=== PATIENT | male | born 1980 | race Caucasian/White ===

== ENCOUNTER 2019-01-18 18:54 | Inpatient (IN) | payer OTHER ==
[~2019-01-18] VITALS: Ht 190.5 cm; Wt 123.8 kg
[2019-01-18 18:55] VITALS: BP 165/91
[2019-01-18] MEDS ORDERED: CLONAZEPAM 1 MG1 M1 PO (19:02)
[2019-01-18] MEDS ORDERED: DOXEPIN 25 MG C25 M1 PO (19:03)
[2019-01-18] MEDS ORDERED: CYMBALTA60 MG PO (19:04)
[2019-01-18] MEDS ORDERED: PAXIL40 MG PO (19:04)
[2019-01-18] MEDS ORDERED: AVAPRO300 MG PO (19:05)
[2019-01-18] MEDS ORDERED: IBUPROFEN 800800 M1 PO (19:05)
[2019-01-18] MEDS ORDERED: VITAMIN D3400 UNIT PO (19:05)
[2019-01-18] MEDS ORDERED: CENTRUM SILVER1 EAC2 PO (19:06)
[2019-01-18] MEDS ORDERED: B COMPLEX1 EACH PO (19:06)
[2019-01-18 19:21] LABS: ABSOLUTE NEUTROPHILS 8.8 thou/uL (1.4-8.2); BASOPHILS 0.3 % (0.0-2.0); EOSINOPHILS 0.1 % (0.0-3.0); HEMATOCRIT 36.4 % (42.0-52.0); HEMOGLOBIN 12.7 gm/dL (14.0-18.0); LYMPHOCYTES 8.1 % (24.0-44.0); MCH 31.3 pg (26.0-34.0); MCV 89.4 fL (80.0-100.0); MONOCYTES 5.3 % (1.0-8.0); PLATELET COUNT 309 thou/uL (150-400); POLYS 86.2 % (36.0-66.0); RBC 4.07 mil/uL (4.50-6.00); RDW 14.2 % (10.5-14.5); WBC 10.2 thou/uL (4.0-11.0)
[2019-01-18 19:46] LABS: ALBUMIN 4.2 g/dL (3.4-5.0); CALCIUM 8.4 mg/dL (8.5-10.1); CREATININE 1.2 mg/dL (0.7-1.3); DIRECT BILIRUBIN 0.2 mg/dL (<0.1-0.3); POTASSIUM 3.7 mmol/L (3.5-5.1); TOTAL BILIRUBIN 0.7 mg/dL (<0.1-1.0); TOTAL PROTEIN 7.8 g/dL (6.4-8.2)
--- NOTE | 2019-01-18 19:48 | NUR ---
CRITICAL LAB VALUE TQ=340 REPORTED BY CHRISTY. PHYSICIAN INFORMED
--- NOTE | 2019-01-18 20:06 | NUR ---
RECEIVED ANOTHER CRITICAL LAB LACTIC ACID=16.9, INFORMED PHYSICIAN
[2019-01-18 21:25] LABS: URINE BILIRUBIN NEGATIVE (Negative); URINE BLOOD 1+ (Negative); URINE CLARITY CLEAR; URINE COLOR YELLOW; URINE GLUCOSE-RANDOM* NEGATIVE (Negative); URINE KETONES 1+ (Negative); URINE LEUKOCYTES-REFLEX NEGATIVE (Negative); URINE NITRITE-REFLEX NEGATIVE (Negative); URINE PROTEIN (DIPSTICK) TRACE (Negative); URINE UROBILINOGEN 0.2 E.U./dl (0.2-1.0)
[2019-01-18 21:31] LABS: AMP/METHAMP Negative (Negative); BARBITURATES Negative (Negative); BENZODIAZEPINES Negative (Negative); COCAINE Negative (Negative); METHADONE Negative (Negative); OPIATES Negative (Negative); PCP Negative (Negative)
[2019-01-18 21:41] LABS: BACTERIA-REFLEX 1-9 Few /HPF (None Seen); CASTS None Seen /LPF (None Seen); CRYSTALS None Seen /LPF (None Seen); SQUAMOUS None Seen /LPF (0-3); URINE WBC-REFLEX None Seen /HPF (0-5)
[2019-01-18 21:42] LABS: URINE RBC 0-2 Rare /HPF (0-2)
[2019-01-18 23:07] VITALS: BP 144/79
[2019-01-18 23:56] VITALS: BP 154/85
[2019-01-19 00:15] LABS: MAGNESIUM 2.4 mg/dL (1.8-2.4); PHOSPHORUS 3.5 mg/dL (2.5-4.9)
[2019-01-19 00:50] VITALS: BP 149/94
[2019-01-19 01:10] LABS: FOLIC ACID 38.2 ng/mL (8.6-58.9)
[2019-01-19] MEDS ORDERED: [UNRECOGNIZED DRUG - OTHER] PO (01:32)
--- NOTE | 2019-01-19 03:43 | NUR ---
PATIENT IS IMPULSIVE. ALERT AND OREIENTED. PATIENT IS CIWA SCORING GREATER THAN 10. PATIENT IS DIAPHORETIC, SEVER TREMORS. PATIENT HAS URINARY FREQUENTCY INCONTIENTANCE. PATIENT IS A HUGE FALL RISK. PATIENT IS ROOM AIR. USES CPAP AT HOME BUT WILL NOT REQUIRE CPAP IN HOSPITAL PER PATIENT. PATIENT DC TWO IVS. PATIENT IS IN BED. [facility]
[2019-01-19 05:05] LABS: HEMATOCRIT 34.4 % (42.0-52.0); HEMOGLOBIN 12.5 gm/dL (14.0-18.0); MCH 31.8 pg (26.0-34.0); MCHC 36.2 g/dL (28.0-37.0); MCV 87.9 fL (80.0-100.0); RBC 3.92 mil/uL (4.50-6.00); RDW 14.5 % (10.5-14.5); WBC 7.8 thou/uL (4.0-11.0)
[2019-01-19 05:10] LABS: CREATININE 0.8 mg/dL (0.7-1.3); POTASSIUM 3.5 mmol/L (3.5-5.1)
[2019-01-19 05:30] VITALS: BP 126/75
[2019-01-19 06:09] LABS: URINE CREATININE-RANDOM* <13 mg/dL; URINE SODIUM-RANDOM* 13 mmol/L
[2019-01-19 07:43] VITALS: BP 121/82
--- NOTE | 2019-01-19 08:21 | EKG ---
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 : 1980 Requested By: Lorie Ames Order Number: [id number] MD: Clifton Edmonds Measurements Intervals [place] Rate: 108 P: 39 KS: 200 QRS: 79 QRSD: 103 T: 17 QT: 331 QTc: 444 Interpretive Statements Sinus tachycardia Borderline prolonged KS interval No previous ECG available for comparison Electronically Signed On 01-19-2019 8:20:56 CDT by Clifton Edmonds [email or web address] ��������������������������������������������� <ELECTRONICALLY SIGNED> ���������������������������������������� By: Clifton Edmonds MD ��������������������������������������������� 01/19/19 08 1905 04 Clifton Edmonds MD /RADHA
[2019-01-19] MEDS ORDERED: COZAAR100 MG PO (08:58)
--- NOTE | 2019-01-19 09:16 | 2DMMODE ---
[facility] [address] [place] [address] 2 D/M-MODE ECHOCARDIOGRAM Name: FABIANNADYA COLLINS Room #: 353-P ADM IN ..#: [id number] ������������� Admission: 01/18/19 ������������� Attend Phys: Dany Ervin MD Discharge: ��� ������������� ��� Date of : 82 Date of Service: 01/19/19 0915 �� Report #: [id number] �������� ��������������������������������������������[id number] THIS REPORT FOR: //name// APPROVED REPORT Study performed: 01/19/2019 08:06:16 EXAM: Comprehensive 2D, Doppler, and color-flow Echocardiogram Patient Location: Bedside Room #: 353 Status: routine BSA: 2.50 HR: 105 bpm BP: 126/75 mmHg Rhythm: NSR/tachycardia Other Information Study Quality: Adequate/tech Indications Syncope Seizures, alcohol withdrawls. 2D Dimensions RVDd: 34.81 mm IVSd: 10.48 (7-11mm) LVOT Diam: 25.26 (18-24mm) LVDd: 50.04 mm PWd: 9.87 (7-11mm) Ascending Ao: 37.03 (22-36mm) LVDs: 31.35 (25-40mm) Aortic Root: 48.42 mm Volumes Left Atrial Volume (Systole) Single Plane 4CH: 46.96 mL Single Plane 2CH: 46.70 mL LA ESV Index: 20.00 mL/m2 Aortic Valve AoV Peak Vikram.: 1.69 m/s AO Peak Gr.: 11.41 mmHg LVOT Max P.37 mmHg LVOT Max V: 1.53 m/s JACKELYN Vmax: 4.54 cm2 Mitral Valve E/A Ratio: 0.7 MV Decel. Time: 170.83 ms [facility] [address] [place] [address] 2 D/M-MODE ECHOCARDIOGRAM Name: NADYA PERALTA Room #: 353-P [facility] IN [facility].#: [id number] ������������� Admission: 01/18/19 ������������� Attend Phys: Dany Ervin MD Discharge: ��� ������������� ��� Date of : 82 Date of Service: 01/19/19 0915 �� Report #: [id number] �������� ��������������������������������������������[id number] E Max Vikram.: 0.72 m/s MV A Vikram.: 0.99 m/s MV PHT: 49.54 ms IVRT: 76.12 ms Pulmonary Valve PV Peak Vikram.: 0.99 m/s PV Peak Gr.: 3.95 mmHg Tricuspid Valve TR Peak Vikram.: 2.43 m/s RAP Estimate: 5.00 mmHg TR Peak Gr.: 23.56 mmHg PA Pressure: 29.00 mmHg Left Ventricle The left ventricle is normal size. There is normal LV segmental wall motion. There is normal left ventricular wall thickness. Left ventricular systolic function is normal. LVEF is 55-60%. Mild diastolic dysfunction is present (impaired relaxation pattern). Right Ventricle The right ventricle is normal size. The right ventricular systolic function is normal. Atria The left atrium size is normal. The right atrium size is normal. Aortic Valve The aortic valve is normal in structure, trileaflet. No aortic regurgitation is present. There is no aortic valvular stenosis. Mitral Valve The mitral valve is normal in structure. Trace to mild mitral regurgitation. Tricuspid Valve The tricuspid valve is normal in structure. Trace tricuspid regurgitation. Estimated PAP is 30mmHg. Pulmonic Valve The pulmonary valve is normal in structure. Trace pulmonic regurgitation. Great Vessels [facility] [address] [place] [address] 2 D/M-MODE ECHOCARDIOGRAM Name: NADYA PERALTA Room #: 353-P ADM IN M.R.#: [id number] ������������� Admission: 01/18/19 ������������� Attend Phys: Dany Ervin MD Discharge: ��� ������������� ��� Date of : 82 Date of Service: 01/19/19 0915 �� Report #: [id number] �������� ��������������������������������������������[id number] Aortic root is moderately dilated at 4.8cm at the level of the sinuses. The ascending aorta is normal in size. IVC is normal in size and collapses >50% with inspiration. Pericardium There is no pericardial effusion. <Conclusion> Left ventricular systolic function is normal. There is normal LV segmental wall motion. LVEF is 55-60%. Mild diastolic dysfunction The aortic valve is normal in structure, trileaflet. No aortic regurgitation or stenosis The mitral valve is normal in structure. Trace to mild mitral regurgitation. Trace tricuspid regurgitation. Estimated pulmonary artery pressure 30mmHg. Aortic root is moderately dilated at 4.8cm at the level of the sinuses. Ascending aorta is normal in size. Pulmonary artery pressure of 30mmHg There is no pericardial effusion. ��������������������������������������������� <ELECTRONICALLY SIGNED> ���������������������������������������� By: Otis Beard MD, FACC ��������������������������������������������� 01/19/19914 4 4 Otis Beard MD, FACC /INF
[2019-01-19 09:38] LABS: CALCIUM 8.5 mg/dL (8.5-10.1); CREATININE 0.9 mg/dL (0.7-1.3)
[2019-01-19 09:39] LABS: POTASSIUM 2.9 mmol/L (3.5-5.1)
[2019-01-19 12:21] VITALS: BP 125/85
[2019-01-19 16:35] VITALS: BP 144/93
[2019-01-19 19:36] VITALS: BP 129/60
[2019-01-20] VITALS: BP 121/79
[2019-01-20 04:30] VITALS: BP 128/80
--- NOTE | 2019-01-20 04:30 | NUR ---
Patient making slow progress towards outcome goals. Vital signs and rhythm stable.NPO. IVFluids infusing. High fall risk, uses calling light appropriately for needs, fall precautions in place. Spouse at bedside. CIWA, Lorazepam per protocol with good relief.
[2019-01-20 04:47] LABS: CREATININE 0.9 mg/dL (0.7-1.3); MAGNESIUM 2.3 mg/dL (1.8-2.4); PHOSPHORUS 2.8 mg/dL (2.5-4.9); POTASSIUM 3.4 mmol/L (3.5-5.1)
[2019-01-20 07:42] VITALS: BP 129/80
--- NOTE | 2019-01-20 10:45 | HC ---
[facility] [place] [address] CONSULTATION Name: NADYA PERALTA Room #: 353-P ADM IN M.R.#: [id number] Admission: 01/18/19 ������������������ Attend Phys: Dany Ervin MD Discharge: ������������������ Date of : [birth year] Report #: [id number] THIS REPORT FOR: //name// CC: Darryl Ervin HISTORY OF PRESENT ILLNESS: The patient is a 38-year-old male who has been struggling with a left elbow infection. Apparently, he was begun on Keflex and for the past several days has been sick to his stomach. He has had nausea, vomiting and diarrhea. He states he has been trying to drink water, but it had been going straight through him. On the day of admission, the patient had gone into the bathroom, the patient's heard a funny sound coming from the bathroom. When she went to the bathroom, she found him unconscious. The patient was pale and diaphoretic; however, there were no jerking movements of the extremities. His states there was blood coming from his mouth, apparently, he had bit the end of his tongue and from his left elbow. The patient was actually supposed to have surgery today. Reviewing the notes from the Emergency Room, it states that the patient was on the ground, shaking, disoriented and sweating. However, the patient had no specific jerking movements, but had a tremor. After this event, he was confused and it took him, she states at least 5 minutes to come around. The patient does drink alcohol. He drinks 4-5 drinks a day 4-5 days a week. PAST MEDICAL HISTORY: Alcohol abuse, depression, anxiety, nonhealing wound of the left elbow. PAST SURGICAL HISTORY: Right elbow surgery. MEDICATIONS: Clonazepam 1 mg b.i.d., doxepin 25 mg b.i.d., paroxetine 40 mg daily, Cymbalta 120 mg daily, Avapro 300 mg daily, ibuprofen 800 mg t.i.d., vitamin D 400 international units daily, B complex daily, multivitamin daily. ALLERGIES: CODEINE, GABAPENTIN, HYDROMORPHONE, LYRICA. VITAL SIGNS: Temperature is 37.1, pulse rate 114, respiratory rate 24, blood pressure 121/82, bedside pulse oximetry 100% on room air. LABORATORY DATA: White blood cell count 7.8, hemoglobin 12.5, hematocrit 34.4, MCV 87.9, platelet count 260,000, 86.2% segmented neutrophils. Urinalysis, trace protein, 1+ ketones, 1+ blood. Chemistry on admission, the patient's sodium was 115, today it is 120, potassium 2.9, chloride 95, carbon dioxide 22, BUN 5, creatinine 0.9, GFR 95, glucose 104, bilirubin 0.7, GGT 139, AST 89, ALT 60, alkaline phosphatase 126, albumin 4.2, lipase 123, B12 764, folate 38.2. TSH 1.153. Toxicology negative with the exception of serum alcohol, which was 67. [address] [address] CONSULTATION Name: NADYA PERALTA Room #: 353-P [facility] IN ..#: [id number] Admission: 01/18/19 ������������������ Attend Phys: Dany Ervin MD Discharge: ������������������ Date of : 82 Report #: [id number] IMAGING: CT scan of the head is negative. NEUROLOGIC: Cranial nerves 2-12 are grossly intact. Motor exam demonstrates symmetrical strength in all 4 extremities with tone and bulk normal. Reflexes are symmetrical throughout. Plantar responses are flexor. Coordination reveals intact [id number]. Gait was not tested. IMPRESSION AND PLAN: This patient has had either a syncopal event or a seizure. He is certainly at risk for either. The EEG should be helpful. If this is unremarkable, then I would not recommend any antiepileptic medication because on presentation, the patient had significant hyponatremia. I also spoke to the patient about the mild elevation in his liver functions and explained to him that if he cannot stop drinking on his own, he should try to find someone who can help him. The patient should also be watched for alcohol withdrawal. At this moment, he does have a tremor and does have p.r.n. lorazepam ordered. I thank you for your kind referral of this patient. We will continue to follow him with you. ��������������������������������������������� <ELECTRONICALLY SIGNED> ���������������������������������������� By: Kia Lipscomb DO ��������������������������������������������� 01/20/19 1045 1040 0226 Kia Lipscomb DO /nt
--- NOTE | 2019-01-20 10:45 | EEG ---
[facility] [place] [address] ELECTROENCEPHALOGRAM Name: NADYA PERALTA Room #: 353-P [facility] IN M.R.#: [id number] ������������������ Admission: 01/18/19 ������������������ Attend Phys: Dany Ervin MD Discharge: ������������������ Date of : 82 Report #: [id number] ����������������������������������������������������������������� [id number] THIS REPORT FOR: //name// CC: Darryl Ervin MD HISTORY: The patient is a 38-year-old male with an episode of altered consciousness and EEG is requested for further evaluation. DESCRIPTION: The record consists of low amplitude 20-25 cycles per second activity, most likely secondary to benzodiazepine effect. The posterior dominant rhythm is not well identified, but at times there appears to be a 10-cycle per second posterior dominant rhythm, which attenuates with eye opening. EMG/muscle artifact is noted during the recording. Stage 1 sleep is characterized by attenuation of the background record. No clear focal abnormalities or epileptiform discharges are noted. IMPRESSION: This is an unremarkable adult awake to stage 1 sleep record. No clear focal abnormalities or epileptiform discharges are noted. Beta activity seen throughout the recording. This is most likely secondary to medication effect from benzodiazepines or barbiturates. ���������������������������������������� <ELECTRONICALLY SIGNED> ���������������������������������������� By: Kia Lipscomb DO ��������������������������������������������� 01/20/19 1045 1417 1755 Kia Lipscomb DO /nt
[2019-01-20 16:16] VITALS: BP 131/87
--- NOTE | 2019-01-20 18:15 | NUR ---
MARIA DE JESUS KO SIGINIFICANTLY IMPROVED TODAY. HE IS ALERT ORIENTED X4. GAIT IS NOW STEADY, HE IS NOT IMPULSIVE ANYMORE. HE DID WALK WITH STAFF ABOUT FACILITY WITH A NORMAL RATE STEADY GAIT. HE WILL BE UPGRADED TO STAND BY ASSIST. WILL CONT WITH PLAN OF CARE.
[2019-01-20 19:35] VITALS: BP 130/85
[2019-01-21] VITALS (14 sets, daily range): BP systolic 123–143; BP diastolic 65–103
--- NOTE | 2019-01-21 03:59 | NUR ---
RESTING QUIETLY TONIGHT. COMPLAINS OF PAIN TO HIS LEFT ELBOW. HYDROCODONE CONTROL PAIN LEVEL. HE HAS BEEN NPO SIMCE MIDNIGHT. HE IA AWARE OF HIS SURGICAL REVISION TO BE DONE THIS MORNING. CAREPLAN REVIEWED. COOPERAIVE AND FRIENDLY, HIS ALCOHOL WITHDRAW CIWA SCORE IS A 1.
[2019-01-21 05:10] LABS: ALBUMIN 3.6 g/dL (3.4-5.0); CALCIUM 9.8 mg/dL (8.5-10.1); PHOSPHORUS 4.6 mg/dL (2.5-4.9); POTASSIUM 4.1 mmol/L (3.5-5.1)
--- NOTE | 2019-01-21 10:21 | NUR ---
PATIENT IS BACK FROM SURGERY AT THIS TIME. NO COMPLAIN OF PAIN. HAD FENTANYL IN PACU. HE IS ALERT ORIENTED X4. RESPIRATIONS ARE EVEN NON LABORED. LUNGS CLEAR. WILL CONT WITH PLAN OF CARE.
--- NOTE | 2019-01-21 18:42 | HC ---
[facility] [place] [address] CONSULTATION Name: NADYA PERALTA Room #: 353-P ADM IN M.R.#: [id number] Admission: 01/18/19 ������������������ Attend Phys: Dany Ervin MD Discharge: ������������������ Date of : 82 Report #: [id number] THIS REPORT FOR: //name// CC: Darryl Ervin DATE OF SERVICE: 01/20/2019 ATTENDING PHYSICIAN: Dr. Ervin. REASON FOR EVALUATION: Suspected deep infection involving the left elbow post-bursectomy. HISTORY OF PRESENT ILLNESS: Chart reviewed, the patient examined. This is a 38-year-old with history of anxiety, has had bilateral elbow infections and required parenteral antimicrobial therapy on the right. The left one is recurrent in nature month had undergone a bursectomy. Interestingly, the cultures per his report were sterile. He has been on extended courses of antibiotics many classes and most recently cephalexin prior to that Levaquin, all of which caused significant adverse drug effects. He did tolerate doxycycline. He noted over the course of the 3 days prior to his admission, he had severe nausea with emesis. He believes he had a syncopal episode. There was some question of seizures. It is not clear that he had fevers or chills. On evaluation, he was found to be markedly hyponatremic with a sodium of 115, elevated AST of 89, ALT of 60. He is known to drink more than 4-5 drinks per day. Lactic acid was elevated at 16.9 as well and drug screen was negative. Urinalysis unremarkable. He is tentatively scheduled to undergo operative debridement of the left elbow in the a.m. of 01/21, has been empirically started on vancomycin. At this point, he is lucid, is in moderate distress, appears to be generally well nourished. ALLERGIES: CODEINE, GABAPENTIN, HYDROMORPHONE, LYRICA. CURRENT MEDICATIONS: Include hydrocodone, vancomycin, enoxaparin, metoprolol, duloxetine, paroxetine, cholecalciferol, famotidine, flumazenil, p.r.n. analgesics, antiemetics. PAST MEDICAL HISTORY: As noted above, history of anxiety, depression, hypertension, hyperlipidemia, previous cholecystectomy, tonsillectomy, adenoidectomy, several orthopedic surgeries. SOCIAL HISTORY: Nonsmoker. Does drink, I believe, on a daily basis. No illicit drug use. FAMILY HISTORY: Noncontributory. [facility] [address] [place] [address] CONSULTATION Name: NADYA PERALTA Room #: 353-P [facility] IN [facility]#: [id number] Admission: 01/18/19 ������������������ Attend Phys: Dany Ervin MD Discharge: ������������������ Date of : 82 Report #: [id number] REVIEW OF SYSTEMS: Denies any significant pulmonary or gastrointestinal complaints; otherwise, unremarkable 10-point review of systems. PHYSICAL EXAMINATION: GENERAL: He is alert, cooperative, appropriate, appears to be generally well nourished. VITAL SIGNS: Temperature 98.2, pulse 81, respirations 20, blood pressure 130/85. SKIN: Warm, dry, no rashes. HEENT: Otherwise, unremarkable. NECK: Supple. LUNGS: Clear to auscultation. HEART: Regular rate and rhythm without murmur. ABDOMEN: Soft, nontender, nondistended. EXTREMITIES: He has got a compression dressing over his left elbow. Distally, not a significant amount of evident inflammation. GENITOURINARY AND RECTAL: Deferred. LABORATORY DATA: Blood cultures are sterile thus far. Most recent electrolytes: Sodium 138 that is again up from 115, potassium 3.4, chloride 100, bicarbonate is 23, anion gap of 15, BUN and creatinine 6 and 0.9. Echo showed EF of 55-60%, mild diastolic dysfunction, normal wall motion. No valvular vegetation. Lactic acid repeat was 1.9. TSH 1.153. CBC from the , white count of 7.8, H and H 12.5 and 34.4, platelets of 260. ASSESSMENT: Likely deep infection involving the left elbow. It is somewhat puzzling that I am not be able to grow in culture with recurrence post-bursectomy. We will await the findings at surgery and ideally cultures in this setting. We will give some insight as to the etiology. I think vancomycin is reasonable to continue, statistically would expect a staphylococcus or streptococcus etiology. He noted had a splinter in his right elbow, raises question of a foreign body is essential. I think the nausea may well have been due to adverse drug effects from the cephalexin, likely to avoid that use totally if at all possible. Discussed with the patient. ��������������������������������������������� <ELECTRONICALLY SIGNED> ���������������������������������������� By: Abilio Nicole MD ��������������������������������������������� 01/21/19 184 09 180 Abilio Nicole MD /nt
[2019-01-22 03:18] VITALS: BP 144/95
--- NOTE | 2019-01-22 03:44 | NUR ---
PT MAKING SLOW PROGRESS TOWARDS GOALS. TWO DOSES OR LORTAB GIVEN FOR PAIN LEFT ELBOW. ONE DOSE OF MORPHINE GIVEN IV. RATING LEFT ELBOW PAIN 6-8/10. ONE EPISODE OF NAUSEA RELIEVED BY A DOSE OF ZOFRAN IV. C/O ANXIETY AT BEDTIME. ONE DOSE OF ATIVAN GIVEN. SEE CHARTING.
[2019-01-22 05:23] LABS: HEMATOCRIT 35.2 % (42.0-52.0); HEMOGLOBIN 12.2 gm/dL (14.0-18.0); MCH 31.5 pg (26.0-34.0); MCHC 34.8 g/dL (28.0-37.0); MCV 90.5 fL (80.0-100.0); RBC 3.89 mil/uL (4.50-6.00); RDW 14.2 % (10.5-14.5); WBC 6.3 thou/uL (4.0-11.0)
[2019-01-22 07:15] VITALS: BP 136/92
[2019-01-22] MEDS ORDERED: DOXYCYCLINE 10100 MG PO (13:39)
[2019-01-22] MEDS ORDERED: METOPROLOL SUCC25 M1 PO (14:37)
[2019-01-22] MEDS ORDERED: HYDROCODON-ACE1 EAC7 PO (14:38)
--- NOTE | 2019-01-22 14:42 | NUR ---
INITIAL ASSESSMENT: Pt evaluated for d/c planning needs. Reviewed chart and spoke with nurse, pt, spouse and father (with patient's permission). Pt is alert and oriented. Pt lives in house with spouse. According to documentation, pt has history of alcohol abuse. Pt was given [facility] information for alcohol treatment if he wants to seek treatment. Pt to d/c home today. No other needs identified.
[2019-01-22 14:50] VITALS: BP 136/92
--- NOTE | 2019-01-22 15:08 | NUR ---
patient will be discharged this time home. he is alert oriented x4. prescriptions given and educated on need to take meds and do f/u with ortho. with him.
--- NOTE | 2019-01-23 08:00 | HC ---
[facility] [place] [address] CONSULTATION Name: NADYA PERALTA Room #: 353-P [facility]..#: [id number] Admission: 01/18/19 ������������������ Attend Phys: Dany Ervin MD Discharge: 01/22/19 ������������������ Date of : 82 Report #: [id number] THIS REPORT FOR: //name// CC: Darryl Ervin DATE OF SERVICE: 01/19/2019 NEPHROLOGY CONSULTATION REASON FOR CONSULTATION: Hyponatremia. HISTORY OF PRESENT ILLNESS: This 38-year-old gentleman, is a heavy alcoholic, was recovering from left elbow surgery for infection and this was not doing well, was found at home after a probable seizure with decreased level of consciousness and brought to the Emergency Room. His serum sodium was 115. He also had apparent alcoholic ketoacidosis with ketones in the urine and metabolic acidosis with some degree of anion gap. Apparently, there was several days' history of nausea and vomiting, poor p.o. intake and heavy alcohol use. HOME MEDICATIONS: Listed as clonazepam 1 mg b.i.d., doxepin 25 mg b.i.d., Paxil 40 mg daily, Cymbalta 120 mg daily, Avapro 300 mg daily, ibuprofen 800 mg every 8 hours, vitamin D3 at 400 units daily. PAST MEDICAL HISTORY: Remarkable for hypertension, depression, anxiety and alcoholism. SOCIAL HISTORY: Heavy drinker, not a smoker. REVIEW OF SYSTEMS: GENERAL: As taken from the medical record. The patient states that he has been feeling reasonably well except for the nausea and vomiting. EYES: His vision is okay. ENT: Hearing okay, swallows okay. Denies mouth sores. ENDOCRINE: No diabetes or thyroid disease. RESPIRATORY: Denies shortness of breath or pleuritic pain. CARDIAC: No chest pain reported. GASTROINTESTINAL: Positive for nausea, vomiting and some diarrhea. GENITOURINARY: There has been no report of dysuria or hematuria. NEUROLOGIC: Possible seizure as mentioned. PHYSICAL EXAMINATION: GENERAL: This is a somewhat tremulous, anxious appearing gentleman. He is awake, alert. He is anxious. SKIN: Shows no lesions. SKELETAL: Dressing over the left elbow. [facility] [address] [place] [address] CONSULTATION Name: NADYA PERALTA Room #: 353-P [facility] IN [facility]#: [id number] Admission: 01/18/19 ������������������ Attend Phys: Dany Ervin MD Discharge: 01/22/19 ������������������ Date of : 82 Report #: [id number] HEENT: Extraocular movements are full. Vision is intact. Hearing is intact. Mucous membranes are moist. Tongue, buccal mucosa benign. NECK: Supple, no carotid bruits. CHEST: Clear to auscultation. HEART: Regular. ABDOMEN: Soft. EXTREMITIES: Show no edema. NEUROLOGIC: Grossly intact. LABORATORY DATA: Sodium is 120, potassium is 2.9, magnesium is 2.4 and creatinine is 0.8. ASSESSMENT AND PLAN: 1. Hyponatremia, multifactorial, he is taking nonsteroidals, which decreased free water clearance, also poor solute intake and alcohol-related decrease in free water clearance. 2. Alcoholic ketoacidosis. We will add D5 to his IV fluids. 3. Hypokalemia, we will treat that. 4. Probable alcohol-related seizure. ��������������������������������������������� <ELECTRONICALLY SIGNED> ���������������������������������������� By: Bret Darnell MD ��������������������������������������������� 01/23/19 0800 1046 0236 Bret Darnell MD /nt
--- NOTE | 2019-01-24 12:20 | O ---
[facility] [place] [address] OPERATIVE REPORT Name: NADYA PERALTA Room #: 353-P [facility] IN ..#: [id number] Admission: 01/18/19 ������������������ Attend Phys: Dany Ervin MD Discharge: 01/22/19 ������������������ Date of : 82 Report #: [id number] THIS REPORT FOR: //name// CC: Darryl Ervin DATE OF SERVICE: 01/21/2019 PREOPERATIVE DIAGNOSIS: Left olecranon bursitis with wound dehiscence. POSTOPERATIVE DIAGNOSIS: Left olecranon bursitis with wound dehiscence. PROCEDURE: I and D left olecranon bursa with primary closure and wound packing. SURGEON: Phu Ortega MD. BUTTON SEWER: Mari Deshpande PA-C. ANESTHESIA: LMA. ESTIMATED BLOOD LOSS: 25 mL. COMPLICATIONS: None. SPECIMENS: Cultures were taken x 2. CONDITION UPON LEAVING THE OPERATING ROOM: Stable. INDICATIONS FOR PROCEDURE: The patient is a 38-year-old gentleman who has had a left olecranon bursitis and previous surgery for this. He presented to our facility with a syncopal episode and wound dehiscence. After discussion with him and his family, they elected for I and D of his left olecranon bursa with packing of the wound. DESCRIPTION OF PROCEDURE: Risks, benefits, alternatives, complications were discussed in detail with the patient including but not limited to risk of anesthesia; risk of damage to nerves, arteries, blood vessels; risk for infection, bleeding; risk for continued elbow pain and need for reoperation. Informed consent was obtained from the patient. The left elbow was appropriately marked in the preoperative holding area. The patient was previously on IV vancomycin and this was continued for preoperative antibiotics. He was brought to the operating room and placed in supine position on operating room table. LMA anesthesia was induced without complication. He was placed in the floppy lateral position using beanbag and left upper extremity was prepped and draped in normal sterile fashion. Timeout was performed, properly identifying the patient and procedure as well as instrumentation. All in the [facility] [address] [place] [address] OPERATIVE REPORT Name: NADYA PERALTA Room #: 353-P [facility] IN M.R.#: [id number] Admission: 01/18/19 ������������������ Attend Phys: Dany Ervin MD Discharge: 01/22/19 ������������������ Date of : 82 Report #: [id number] operating room were in agreement. The olecranon bursa was widely opened and the previous nylon sutures were removed. The bursa was debrided of fibrinous tissue, cultures of this were taken. Skin edges were cleaned as best we could do and the bursa was thoroughly irrigated with normal saline using pulse lavage. Half inch iodoform gauze was then packed in the bursa and the skin was closed with 3-0 nylon, leaving a tail of the gauze sticking out for gradual removal over the next several days. The patient tolerated this procedure well and went to the recovery room under the care of anesthesia postoperatively. ��������������������������������������������� <ELECTRONICALLY SIGNED> ���������������������������������������� By: Phu Ortega MD ��������������������������������������������� 01/24/19 1220 0915 0941 Phu Ortega MD /nt
--- NOTE | 2019-01-24 12:20 | HC ---
[facility] [place] [address] CONSULTATION Name: NADYA PERALTA Room #: 353-P [facility] IN M.R.#: [id number] Admission: 01/18/19 ������������������ Attend Phys: Dany Ervin MD Discharge: 01/22/19 ������������������ Date of : 82 Report #: [id number] THIS REPORT FOR: //name// CC: Darryl Ervin DATE OF SERVICE: 01/20/2019 REASON FOR CONSULTATION: Left olecranon bursitis. HISTORY OF PRESENT ILLNESS: The patient is a 38-year-old gentleman who is admitted to the hospital with a syncopal event. He has a history of alcohol abuse. There was a question that he had a possible seizure. Recently, he had olecranon bursitis in the left elbow and has had at least one previous surgery with Dr. Neumannss He has GI issues as well as the questionable syncopal episode and seen in the Emergency Room for evaluation. PAST MEDICAL HISTORY: Significant for hyponatremia, depression, anxiety. SOCIAL HISTORY: He does not smoke. 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 He drinks 4-5 times per week. CURRENT MEDICATIONS: Have been reviewed and on the chart. ALLERGIES: Have been reviewed. PHYSICAL EXAMINATION: GENERAL: Well-developed, well-nourished male in no acute distress. He is alert and oriented, pleasant, cooperative. EXTREMITIES: Left elbow, the patient had an open olecranon bursa with macerated skin edges. There are nylon sutures. The opening is about 3 cm in length. There is purulence coming from this. NEUROLOGIC: He is neurologically intact. LABORATORY VALUES: Show normal white blood cell count of 7.8. ASSESSMENT: Left olecranon bursitis. PLAN: Discussed treatment options with the patient today. I am recommending repeat I and D with closure with iodoform gauze packing. Also, we will consult Infectious Disease for their recommendations on antibiotics for him. I have him scheduled for 08:00 tomorrow morning for surgery. [address] [address] CONSULTATION Name: FABIAN,NADYA DENNIS Room #: 353-P [facility]..#: [id number] Admission: 01/18/19 ������������������ Attend Phys: Dany Ervin MD Discharge: 01/22/19 ������������������ Date of : 82 Report #: [id number] Thank you for allowing us to participate in the care of the patient. ��������������������������������������������� <ELECTRONICALLY SIGNED> ���������������������������������������� By: Phu Ortega MD ��������������������������������������������� 01/24/19 1220 2158 1823 Phu Ortega MD /nt
== END 2019-01-22 15:15 | disposition home or self-care (01) | DRG 901 ==
LOC: ER 18:54 → 3W 23:38 → EROBS 23:38 → 3W 01-19 01:03
PROVIDERS: Emergency Medicine; Hospitalist; Nurse Practitioner Family; ADMIT Hospitalist
PROC: 0XQC0ZZ Repair Left Elbow Region, Open Approach (ICD-10-PCS; principal; 2019-01-18)
PROC: 0JBH0ZZ Excision of Left Lower Arm Subcutaneous Tissue and Fascia, Open Approach (ICD-10-PCS; 2019-01-21)
DX: T81.32XA Disruption of internal operation (surgical) wound, not elsewhere classified, initial encounter (principal); N17.0 Acute kidney failure with tubular necrosis; E87.2 Acidosis; E87.1 Hypo-osmolality and hyponatremia; R56.9 Unspecified convulsions; M70.22 Olecranon bursitis, left elbow; F32.9 Major depressive disorder, single episode, unspecified; F10.120 Alcohol abuse with intoxication, uncomplicated; E86.0 Dehydration; F11.10 Opioid abuse, uncomplicated; F41.1 Generalized anxiety disorder; S51.012A Laceration without foreign body of left elbow, initial encounter; X58.XXXA Exposure to other specified factors, initial encounter; E87.6 Hypokalemia; Y83.8 Other surgical procedures as the cause of abnormal reaction of the patient, or of later complication, without mention of misadventure at the time of the procedure; Y92.89 Other specified places as the place of occurrence of the external cause; Z90.49 Acquired absence of other specified parts of digestive tract; Y93.89 Activity, other specified; Y99.8 Other external cause status; Z79.899 Other long term (current) drug therapy; Z88.8 Allergy status to other drugs, medicaments and biological substances; Z88.6 Allergy status to analgesic agent
CPT/HCPCS: 10879; 50010; 50101; 50386; 53078; 56527; 57091; 62110; 62900; 70005

== ENCOUNTER 2021-02-20 07:08 | Inpatient (IN) | payer OTHER ==
[~2021-02-20] VITALS: Ht 190.5 cm; Wt 111.1 kg
[2021-02-20] VITALS (11 sets, daily range): BP systolic 125–172; BP diastolic 75–100
[~2021-02-20 07:08] MED LIST: ASPIRIN EC325 MG PO; ATIVAN1 M1 PO; AVAPRO300 MG PO; B COMPLEX1 EACH PO; CENTRUM SILVER1 EAC2 PO; CLONAZEPAM 1 MG1 M1 PO; COZAAR100 MG PO; CYMBALTA60 MG PO; DOXEPIN 25 MG C25 M1 PO; DOXYCYCLINE 10100 MG PO; HYDROCODON-ACE1 EAC7 PO; IBUPROFEN 800800 M1 PO; IRBESARTAN300 MG PO; METOPROLOL SUCC25 M1 PO; OXYCODONE-APAP1 EAC4 PO; PAROXETINE HCL30 MG PO; PAXIL40 MG PO; VITAMIN D3400 UNIT PO; VITAMIN E1000 UNIT PO; [UNRECOGNIZED DRUG - OTHER] PO
--- NOTE | 2021-02-20 08:35 | EKG ---
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
--- NOTE | 2021-02-20 08:45 | NUR ---
ADV. DIR. CONSULT [id number] COMPLETED BY THIS ACCELERATOR TECHNICIAN TODAY PRIOR TO HIS PROCEDURE. HE DECLINED DOING AN ADVANCED DIRECTIVE. 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
--- NOTE | 2021-02-20 15:07 | NUR ---
ASSESSMENT: CM REVIEWED CHART AND SPOKE WITH PATIENT AT THE BEDSIDE. PT IS S/P I&D TO RIGHT ANKLE. PT REPORTS LIVING IN A HOUSE WITH HIS . PT REPORTS NO STEPS TO GET IN TO THE HOME BUT STATES ABOUT 14 STEPS WITH HANDRAILS TO THE BASEMENT WHERE HIS OFFICE IS AND HE WORKS FROM HOME. PT REPORTS THAT HE USES [facility] AT THIS TIME FOR AMBULATION. PT REPORTS NO HX OF HH AND REPORTS THAT HE AND HIS FEEL COMFORTABLE WITH ANY DRESSING CHANGES AND DO NOT FEEL HE NEEDS HOME HEALTH. PT IS CURRENTLY ON IV ANBX. CM WILL CONTINUE TO FOLLOW TO ASSIST NEEDED. PT DOES NOT ANTICIPATE ANY NEEDS FROM CM AT THIS TIME.
[2021-02-20 15:57] LABS: HEMATOCRIT 25.8 % (42.0-52.0); HEMOGLOBIN 8.9 gm/dL (14.0-18.0); MCH 32.2 pg (26.0-34.0); MCHC 34.4 g/dL (28.0-37.0); MCV 93.6 fL (80.0-100.0); RBC 2.75 mil/uL (4.50-6.00); RDW 15.5 % (10.5-14.5); WBC 6.7 thou/uL (4.0-11.0)
[2021-02-20 16:07] LABS: ALBUMIN 2.7 g/dL (3.4-5.0); CALCIUM 8.9 mg/dL (8.5-10.1); CREATININE 1.3 mg/dL (0.7-1.3); TOTAL BILIRUBIN 0.2 mg/dL (0.2-1.0)
--- NOTE | 2021-02-20 20:14 | NUR ---
Admission from OR s/p I&D of R ankle; transferred to room safely. On room air. Vital signs stable. On MS, not on telemetry; no complains and signs of chest pain, crushing sensation and heaviness. Assisted in ADLs. On regular diet- tolerating well; no nausea, no vomiting and no abdominal pain noted. With SL at R hand. Post op dressing C/D/I; no signs of bleeding and profuse drainage; hemovac in place- output measured and recorded; ice packs, SCDs in place; NVS intact; able to move toes and have sensation. Complained of pain, due pain meds given as prescribed. Admission history, assessment and education done; forms signed at OR. Med rec done- Dr Isbell informed to review meds. With consult to hospitalist for medical management- Dr Isbell informed; Dr Patel informed re: consult as well. MRSA swab(nose) ordered- specimen obtained and sent to lab. Pt complained of fullness on bladder this PM; bladder scan done- retaining 1400mls- APPRENTICE Rhina informed re: this; jones inserted as per protocol- total output 2800- recorded. To continue monitoring patient.
[2021-02-21 02:35] VITALS: BP 137/86
[2021-02-21 05:08] LABS: ABSOLUTE NEUTROPHILS 6.4 thou/uL (1.4-8.2); BASOPHILS 0.3 % (0.0-2.0); EOSINOPHILS 0.1 % (0.0-3.0); HEMATOCRIT 24.6 % (42.0-52.0); HEMOGLOBIN 8.6 gm/dL (14.0-18.0); LYMPHOCYTES 10.6 % (24.0-44.0); MCH 32.8 pg (26.0-34.0); MCHC 35.2 g/dL (28.0-37.0); MCV 93.2 fL (80.0-100.0); MONOCYTES 9.5 % (1.0-8.0); PLATELET COUNT 423 thou/uL (150-400); POLYS 79.5 % (36.0-66.0); RBC 2.64 mil/uL (4.50-6.00); RDW 15.6 % (10.5-14.5)
[2021-02-21 05:09] LABS: POTASSIUM 4.2 mmol/L (3.5-5.1)
[2021-02-21 05:17] LABS: CALCIUM 8.7 mg/dL (8.5-10.1); MAGNESIUM 1.7 mg/dL (1.8-2.4); POTASSIUM 4.7 mmol/L (3.5-5.1)
--- NOTE | 2021-02-21 05:47 | NUR ---
REECEIVED CARE OF THIS PATIENT AT 1900. PATIENT ALERT AND ORIENTED X4. REMAINS ON BEDREST D/T SURGERY ON R FOOT. R FOOT HAS DRESSING THAT IOS D/I. R FOOT UP ON PILLOWS. C/O PAIN, MED GIVEN. C/O NAUSEA BEGINNING OF SHIFT BUT DID NOT REQUIRE ANY MED. TOES WARM AND ABLE TO MOVE. SLEPT OFF AND ON DURING NIGHT.
[2021-02-21 08:56] VITALS: BP 142/94
--- NOTE | 2021-02-21 09:51 | NUR ---
POST-OP ORDERS RECEIVED FOR EVAL AND TREAT NWB RT LE. SPOKE WITH Pt WHO STATES HE HAS BEEN USING [facility] PRIOR TO SURGERY AND DOES NOT NEED ANY FORMAL INSTRUCTIONS. Pt DECLINING P.T. EVAL.
--- NOTE | 2021-02-21 13:56 | NUR ---
ASSUMED CARE OF PT AT 0700 THIS MORNING. PT WAS ADMITTED FOR NONHEALING WOUND ON RIGHT ANKLE. PT HAS BEEN A/OX4, AND UNABLE TO SLEEP DUE TO PAIN. PT HAS BEEN GIVEN OXY/APAP AND FENTYNIL ALTERNATING 3HOURS WITHOUT MUCH RELIEF. DR. OH ORDERED PT EXTENDED RELEASE MORPHINE 15MG. PT WAS SLEEPING WHEN RE-ASSESSING. ONGOING ASSESSMENTS WERE OTHERWISE UNREMARKABLE. ANKLE IS WRAPPED WITH AMOS AND C/D/I DRESSING. IV IN RIGHT HAND WITH ANTIBIOTICS. VSS, CR<3SEC IN RIGHT TOES WITH GOOD MOV'T. CALL LIGHT AND OTHER NEEDS ARE PLACED WITHIN REACH.
[2021-02-21 15:36] VITALS: BP 144/88
[2021-02-21 19:42] VITALS: BP 155/78
--- NOTE | 2021-02-22 03:06 | NUR ---
RECEIVED CARE OF THIS PATIENT [id number]. PATIENT ALERT AND ORIENTED X4. C/O PAIN IN R LOWER EXT. DRESSING ON R LOWER EXT D/I. R FOOT NOT EDEMATOUS OR RED BEGINNING OF SHIFT. REMAINS ON BEDREST FOR NOW. HAS HALEY THAT IS PATENT YELLOW URINE. PICC LINE PATENT AND DRAWS GREAT. SLEPT OFF AND ON DURING NIGHT.
[2021-02-22 04:47] VITALS: BP 143/100
[2021-02-22 09:15] VITALS: BP 140/93
--- NOTE | 2021-02-22 11:04 | NUR ---
ASSUMED PT CARE THIS AM. PT IS ALERT & ORIENTED X4. PT HAS IV SITE ON L UA PICC LINE SINGLE LUMEN. PT IS ON ROOM AIR. PT HAS HALEY CATH IN PLACE. PT HAS SCD ON L LEG. GIVEN ONDANSETRON BEFORE INFUSING IV ANTIBIOTIC PER PT REQUEST. PT HAS BOOTS, CRUTCES AND WALKER. PT TOLERATED MEDICATION AND DIET THIS AM. PT C/O OF PAIN ON R ANKLE AND GIVEN PAIN MEDICATION PER PT REQUEST. PT AT THE BEDSIDE. PT ON THE BED WATCHING TV, BED ON THE LOWEST POSITION, SIDE RAILS UP, CALL LIGHT WITHIN REACH. WILL CONTINUE TO MONITOR PT. FOLLOW POC.
[2021-02-22 18:00] VITALS: BP 139/94
[2021-02-22 19:24] VITALS: BP 134/97
--- NOTE | 2021-02-23 02:33 | NUR ---
ASSUMED CARE OF PT AT 1900. PT IS A/O X4 AND IS UP WITH [facility] AND IS NONWT BEARING TO HIS RIGHT ANKLE. ROOM AIR. MS NO TELE. HALEY CATHETER IN PLACE AND IS DRAINING AN EXCESS AMOUNT OF LIGHT YELLOW URINE. NO IV FLUIDS IN PLACE BUT IS TAKING IV ABX PRESCRIBE. NO BM THIS SHIFT. PT IS ASKING FOR PAIN MEDICATION AROUND THE CLOCK AND C/O SEVERE PAIN TO HIS RIGHT FOOT/ANKLE. PARTIAL RELIEF NOTED AFTER MEDICATION. IV AND PO PRN PAIN MEDICATION GIVEN DIRECTED AND PO SCHEDULED PAIN MEDICATION GIVEN PRESCRIBED. PRN ZOFRAN GIVEN PRIOR TO VANCO INFUSION AT PT REQUEST. ALL MEDICATIONS GIVEN PER NOV. FALL PRECAUTIONS IN PLACE, CALL LIGHT IS WITHIN REACH. PT CALLS OUT APPROPRIATELY. PROGRESSING TOWARDS PLAN OF CARE DC GOALS
[2021-02-23 07:26] VITALS: BP 141/93
--- NOTE | 2021-02-23 13:55 | HC ---
[facility] [place] [address] CONSULTATION Name: NADYA PERALTA Room #: 434-P ADM IN M.R.#: [id number] Admission: 02/20/21 Attend Phys: Caleb Wisdom MD Discharge: Date of : 81 Report #: [id number] THIS REPORT FOR: cc: Darryl Clemente MD, Eric K. MD Geha, Daniel J. MD ~ DOC #: [id number] Giovanni Patel MD DATE OF SERVICE: 02/20/2021 INFECTIOUS DISEASE CONSULTATION REASON FOR CONSULTATION: I am asked to evaluate concerning right ankle surgical site infection. HISTORY OF PRESENT ILLNESS: The patient was a 40-year-old underlying history of anxiety, depression, alcoholism. He had fallen 2 months ago. At that time, he had a significant lateral ankle injury with tendon rupture. Two weeks ago underwent surgical repair by Dr. Wisdom. He was supposed to be nonweightbearing. The patient does report he was walking on it. Two days ago noticed increased pain, swelling and drainage. Taken to surgery today for incision and drainage of an abscess. Sutures were removed and further repair was completed. Postoperatively, he has been stable with persistent pain in the ankle. No fever, chills or sweats. Denies any nausea, vomiting or diarrhea. REVIEW OF SYSTEMS: A 14-point review of system was negative other than what is described above. ALLERGIES: CODEINE, GABAPENTIN, PREGABALIN, OXYMORPHONE. MEDICATIONS: As noted on his NOV, which were reviewed. Currently on vancomycin. PAST MEDICAL HISTORY: Depression, anxiety, MRSA infection of his left elbow, hypertension, right shoulder repair, right knee arthroscopy, left foot screw placed and removed, bilateral cubital tunnel releases, cholecystectomy, ERCP, left elbow bursectomy, right elbow MRSA infection and tendon repair, fatty liver, alcohol abuse, thoracic laminectomy, and the right ankle tendon repair. FAMILY HISTORY: Negative for tuberculosis. SOCIAL HISTORY: Nonsmoker. Significant alcohol intake. Lives with his . PHYSICAL EXAMINATION: VITAL SIGNS: He was afebrile and hemodynamically stable. GENERAL: He is alert and cooperative and pleasant, in no acute distress. [address] [address] CONSULTATION Name: NADYA PERALTA Room #: 434-P [facility] IN .R.#: [id number] Admission: 02/20/21 Attend Phys: Caleb Wisdom MD Discharge: Date of : 81 Report #: [id number] SKIN: Without rash or decubitus. No palpable adenopathy. He was obese. HEENT: Without scleral icterus. Mouth without mucositis. NECK: Supple. LUNGS: Clear. HEART: Regular, without murmur, gallop or rub. ABDOMEN: Soft and nontender with no hepatosplenomegaly or mass. EXTREMITIES: Right foot was in surgical wrap and West wrapped with a drain in place. Toes are warm to the touch. Normal capillary refill and sensation to touch as well as strength. LABORATORY DATA: Reviewed. Awaiting culture results. Microbiology reviewed operative note reviewed. IMPRESSION: 1. Right ankle surgical site infection following tendon repair. 2. Hypertension. 3. Alcohol abuse. 4. Anxiety disorder. RECOMMENDATIONS: We will continue IV antibiotic therapy with vancomycin and cefepime. We will await culture results and then make adjustments from there. We will then arrange outpatient infusion post discharge. MD JOSE DanielleG/HERIBERTO <ELECTRONICALLY SIGNED> By: Giovanni Patel MD 02/23/21 1355 1601 0047 Giovanni Patel MD /nt
--- NOTE | 2021-02-23 14:52 | NUR ---
Assumed pt care at 7am.Pt in bed with left lower extremity elevated on the pillow.Assessment completed.vss.Dr Isbell and Roberto here,wanted ID cleared pt prior to dc home.Dr Patel notified and he later rounded on pt.Order noted. Pt will be dc home tomorrow on iv antibiotic to be arranged by casework specialist. Pt c/o rt lower extremity pain rated 8/10.Both po and iv pain med has been given todaywith relief.No further c/o at present.Pt informed about dc home in am with home health.Fall bundle in place.Will continue to monitor.
[2021-02-23 15:57] VITALS: BP 149/95
[2021-02-23 19:19] VITALS: BP 124/87
--- NOTE | 2021-02-24 03:13 | NUR ---
PT IS ALERT AND OREINTED X4 PLEASANT. COMPLAINS OF PAIN IN RIGHT FOOT AND LEG. PAIN MEDS GIVEN ON NOV FOR PAIN SEE NOV FOR TIME OF ADMISNISTRATION. REST AND SLEEPS AFTER MEDS GIVEN ON ANTIBITOTICS ORDRERED TOO FOR INFECTION. FAMILY AT BED SIDE THIS EVENING FOR SUPPORT. LUNGS ARE CLEAR. HALEY TO DD WITH YELLOW URINE. CALL LIGHT WITHIN REACH IF NEEDS ASSSITANCE PER STAFF.
[2021-02-24 03:53] VITALS: BP 126/88
[2021-02-24 07:05] VITALS: BP 127/87
[2021-02-24 08:40] VITALS: BP 127/87
[2021-02-24] MEDS ORDERED: OXYCODONE-APAP1 TAB PO (09:16)
[2021-02-24] MEDS ORDERED: MS CONTIN15 MG PO (09:16)
[2021-02-24] MEDS ORDERED: ZOFRAN ODT4 MG PO (09:16)
--- NOTE | 2021-02-24 09:37 | NUR ---
ASSUMED PT CARE THIS AM. PT IS ALERT & ORIENTED X4. PT HAS IV SITE ON L UA PICC LINE. PT USES CRUTCHES. PT HAS HALEY ON. PT C/O OF PAIN AND GIVEN PAIN MEDICATION PER REQUEST. INFORMED DR ABOUT PT REQUEST FOR NAUSEA PRESCRIPTION. PT IS ON ROOM AIR. PT TOLERATED MEDICATION AND DIET WELL THIS AM. PT ON THE BED, BED ON THE LOWEST POSITION, SIDE RAILS UP, CALL LIGHT WITHIN REACH. WILL CONTINUE TO MONITOR PT. FOLLOW POC.
--- NOTE | 2021-02-24 13:07 | NUR ---
ON-GOING ASSESSMENT: CM REVIEWED CHART. PT HAS A CONSULT HE IS NEEDING HOME IV INFUSION ARRANGED FOR CEFAZOLIN 2GM IV Q8HRS FOR ONE WEEK. CM MET WITH PATIENT AT THE BEDSIDE WHO REPORTS HE HAS NO PREFERENCE OF INFUSION COMPANY OR HH COMPANY. CM FAXED REFERRAL TO [facility] WHO IS OUT OF NETWORK WITH PATIENTS INSURANCE. CM FAXED TO [facility] WHO IS IN NETWORK AND CAN ACCEPT PATIENT. PER SONJA MATA AT [facility] PATIENT IS COVERED AT 100 PERCENT HE HAS MET HIS OOP AND DEDUCTABLE. SONJA IS COMING TO BE DO BEDSIDE TEACHING WITH PATIENT AT 1330. PT IS AWARE AND SONJA ALSO SENT A VIDEO FOR PATIENT TO WATCH. PLANS ARE FOR [facility] TO COME DO BEDSIDE TEACHING AND THEM DISCHARGE PATIENT AND THEY WILL DELIVER PM DOSE TO PATIENT AT HOME. PICC LINE WAS ALREADY PLACED AND CM FAXED CONFIRMATION OF PLACEMENT TO [facility] WELL DISCHARGE ORDERS AND CONFIRMED THEY RECEIVED IT. CM ALSO FAXED REFERRAL TO [facility] WHO REPORTS THEY CAN ACCEPT PATIENT AND ARE AWARE HE IS DISCHARGING ON IV ANBX AND CAN ACCEPT AND NOTIFIED OF DISCHARGE TODAY. AWAITING TEACHING FOR HOME INFUSION AND THEN PLANS TO DISCHARGE HOME TODAY.
--- NOTE | 2021-02-25 15:58 | O ---
[facility] [place] [address] OPERATIVE REPORT Name: NADYA PERALTA Room #: 434-P [facility] IN M.R.#: [id number] Admission: 02/20/21 Attend Phys: Caleb Wisdom MD Discharge: 02/24/21 Date of : 81 Report #: [id number] THIS REPORT FOR: cc: Darryl Clemente MD, Eric K. MD Kneidel,Caleb Watts MD ~ DOC #: [id number] Caleb Wisdom MD DATE OF SERVICE: 02/20/2021 PREOPERATIVE DIAGNOSIS: Right ankle abscess. POSTOPERATIVE DIAGNOSIS: Right ankle abscess. PROCEDURE: Right ankle irrigation and debridement. SURGEON: Caleb Wisdom MD ANESTHESIA: General. ESTIMATED BLOOD LOSS: Minimal. DRAIN: One Hemovac drain was placed. COMPLICATIONS: There were no complications. DESCRIPTION OF PROCEDURE: The patient was brought to the operating room where he was placed under general anesthesia. Once under adequate general anesthesia, his right lower extremity was prepped and draped in a sterile manner. The patient's previous incision was opened. The remaining tameka were removed and upon opening the wound, there was abundant purulence identified. Cultures were taken at this time. The remainder of the incision was opened. This was a 10 cm incision. This was dissected down through the soft tissue to the prior repair. There was some Ethibond suture, which was removed as well as some Prolene suture from his previous peroneal tendon repair, which was removed as well. The Ethibond had repaired the retinaculum. The tendons themselves were torn as well. There was extensive tearing of the peroneus brevis. The wound was irrigated copiously and the tendons were debrided with tenotomy scissors. The wound was irrigated copiously with pulsatile lavage and a Hemovac drain was then placed. The retinacular tissue was repaired with 2-0 PDS suture. The wound was irrigated once again copiously and closed with 2-0 nylon for the skin. The wounds were dressed with Xeroform, 4 x 4's, and sterile soft compressive dressing was placed. Tourniquet was let down at approximately 30 minutes. Toes were pink and warm. Good capillary refill. There were no complications from the procedure. The patient tolerated the procedure well and was to the recovery room without incident. [address] [address] OPERATIVE REPORT Name: FABIANNADYAANGÉLICA WELLSEL Room #: 434-P [facility] IN .R.#: [id number] Admission: 02/20/21 Attend Phys: Caleb Wisdom MD Discharge: 02/24/21 Date of : 82 Report #: [id number] Caleb Wisdom MD MTK/LUCIA <ELECTRONICALLY SIGNED> By: Caleb Wisdom MD 02/25/21 1558 0910 1009 Caleb Wisdom MD /nt
== END 2021-02-24 14:50 | disposition home health service (06) | DRG 856 ==
LOC: OR 07:08 → 4S 11:48 → OR 11:49 → 4S 02-24 14:50
PROVIDERS: Nurse Practitioner; ADMIT Orthopaedic Surgery Foot and Ankle Surgery; ATTEND Orthopaedic Surgery Foot and Ankle Surgery
DX: T81.42XA Infection following a procedure, deep incisional surgical site, initial encounter (principal); E43 Unspecified severe protein-calorie malnutrition; L02.415 Cutaneous abscess of right lower limb; M00.9 Pyogenic arthritis, unspecified; F32.9 Major depressive disorder, single episode, unspecified; F10.20 Alcohol dependence, uncomplicated; Y90.9 Presence of alcohol in blood, level not specified; I10 Essential (primary) hypertension; F41.1 Generalized anxiety disorder; G89.29 Other chronic pain; K21.9 Gastro-esophageal reflux disease without esophagitis; Y83.8 Other surgical procedures as the cause of abnormal reaction of the patient, or of later complication, without mention of misadventure at the time of the procedure; Z90.49 Acquired absence of other specified parts of digestive tract; Z88.5 Allergy status to narcotic agent; Z88.8 Allergy status to other drugs, medicaments and biological substances; Y92.89 Other specified places as the place of occurrence of the external cause
CPT/HCPCS: 10102; 50010; 50101; 50386; 53078; 56525; 57091; 57103; 57180; 62110; 62900; 70005

== ENCOUNTER 2021-03-02 04:06 | Emergency (ER) | payer OTHER ==
[~2021-03-02] VITALS: Ht 190.5 cm; Wt 108.9 kg
[~2021-03-02 04:06] MED LIST changes: +MS CONTIN15 MG PO; +OXYCODONE-APAP1 TAB PO; +ZOFRAN ODT4 MG PO
[2021-03-02] MEDS ORDERED: PERCOCET 5-3251 EACH PO (05:02)
[2021-03-02 05:10] VITALS: BP 130/100
== END 2021-03-02 05:15 | disposition home or self-care (01) ==
LOC: ER 04:06
DX: G89.18 Other acute postprocedural pain (principal); M25.571 Pain in right ankle and joints of right foot; I10 Essential (primary) hypertension; Z88.5 Allergy status to narcotic agent; Z88.8 Allergy status to other drugs, medicaments and biological substances; Z79.82 Long term (current) use of aspirin; Z79.899 Other long term (current) drug therapy; Z90.49 Acquired absence of other specified parts of digestive tract

== ENCOUNTER 2021-03-11 15:44 | Inpatient (IN) | payer OTHER ==
[~2021-03-11] VITALS: Ht 190.5 cm; Wt 106.6 kg
[~2021-03-11 15:44] MED LIST changes: +PERCOCET 5-3251 EACH PO
[2021-03-11 16:00] VITALS: BP 115/70
[2021-03-11 18:40] LABS: ABSOLUTE NEUTROPHILS 5.3 thou/uL (1.4-8.2); BASOPHILS 0.9 % (0.0-2.0); EOSINOPHILS 0.7 % (0.0-3.0); HEMATOCRIT 34.4 % (42.0-52.0); HEMOGLOBIN 11.8 gm/dL (14.0-18.0); LYMPHOCYTES 22.1 % (24.0-44.0); MCH 31.2 pg (26.0-34.0); MCHC 34.4 g/dL (28.0-37.0); MCV 90.9 fL (80.0-100.0); MONOCYTES 3.2 % (1.0-8.0); PLATELET COUNT 466 thou/uL (150-400); POLYS 73.1 % (36.0-66.0); RBC 3.79 mil/uL (4.50-6.00); RDW 16.1 % (10.5-14.5); WBC 7.3 thou/uL (4.0-11.0)
[2021-03-11 18:48] LABS: ANION GAP 16 mmol/L (7-16); BUN 12 mg/dL (7-18); CALCIUM 9.3 mg/dL (8.5-10.1); CHLORIDE 93 mmol/L (98-107); CO2 19 mmol/L (21-32); CREATININE 0.9 mg/dL (0.7-1.3); GLUCOSE 99 mg/dL (74-106); POTASSIUM 4.2 mmol/L (3.5-5.1); SODIUM 128 mmol/L (136-145)
[2021-03-11 18:56] LABS: ALBUMIN 4.1 g/dL (3.4-5.0); SGOT 17 U/L (15-37); SGPT 15 U/L (30-65); TOTAL BILIRUBIN 0.3 mg/dL (0.2-1.0); TOTAL PROTEIN 8.1 g/dL (6.4-8.2); TROPONIN-I <0.06 ng/mL (<0.06)
[2021-03-11 20:21] VITALS: BP 123/72
[2021-03-11 20:50] VITALS: BP 143/90
[2021-03-11 20:51] VITALS: BP 142/88
[2021-03-12 00:45] VITALS: BP 145/93
[2021-03-12 04:06] VITALS: BP 134/83
--- NOTE | 2021-03-12 07:13 | EKG ---
[address] [place] [address] ELECTROCARDIOGRAM REPORT Name: NADYA PERALTA Room #: 203-P ADM IN M.R.#: [id number] Admission: 03/11/21 Attend Phys: Eliz Gonzales MD Discharge: Date of : 81 Report #: [id number] [facility] ED Test Date: 2021-03-11 Test Time: 16:00:41 Pat Name: NADYA PERALTA Department: Room: 203 Gender: M Strategic Marketing Associate: SASHA : 1980 Requested By: Gini Abernathy Order Number: [id number] MD: Lenin Liu Measurements Intervals [place] Rate: 108 P: 26 WV: 182 QRS: 73 QRSD: 99 T: 31 QT: 324 QTc: 435 Interpretive Statements Sinus tachycardia ST elev, probable normal early repol pattern Baseline wander in lead(s) V2 Compared to ECG 02/20/2021 07:40:31 ST (T wave) deviation now present Electronically Signed On 03-12-2021 7:13:40 CDT by Lenin Liu [email or web address] <ELECTRONICALLY SIGNED> By: Lenin Liu MD, [facility] 03/12/21 0713 1600 1600 Lenin Liu MD, [facility] /EPI
[2021-03-12 07:35] VITALS: BP 165/92
[2021-03-12 08:10] VITALS: BP 165/92
--- NOTE | 2021-03-12 08:10 | NUR ---
ASSUME CARE 1900. PT/VITALS STABLE. INTERMITTENT RIGHT FOOT PAIN/INFECTION INDICATED. ID TO MANAGE ABX THERAPY FOR INFECTION. A/O X 4. PLEASANT WITH NO SIGNS OF WITHDRAWALS. ASSESSMENT CHARTED. PROGRESSING MORDERATELY WITH POC. PLAN IS TO MONITOR ELECTROLYTES/VITAMINS/MINERALS AND MANAGE RIGHT ANKLE INFECTION. WILL CONTINUE TO MONITOR AND FOLLOW WITH POC
[2021-03-12 11:15] VITALS: BP 117/70
--- NOTE | 2021-03-12 15:09 | NUR ---
Met with patient who admits with ETOH withdraw. Patient with peroneal tear of right ankle that subsequently became infected. patient was inpatient at [facility] and nh 02/24/21. Patient at that time dc with home plan of IV antibiotics. [facility] following for home health care. [facility] supplied antibiotic. Updated both companies. Patient reports he is familiar with [facility], first call, AA meetings, outpatient program. He has been inpatient ETOH in recent past. Patient reports when ankle tear happened and he needed antibiotics he reports he became more isolated and not managing his anxiety. Patient reports plan at nh is not inpatient for him. He may do outpatient tx and stay with a family member. reports family supportive. [facility] following if cont antibiotic tx at nh. patient familiar with resources for ETOH. Patient currently not employed.
--- NOTE | 2021-03-12 17:16 | NUR ---
FAXED CLINICAL UPDATES TO [facility]. WILL CONFIRM WITH MONICA/ LIAISON THAT THEY RECEIVED. [employer] [facility] P [phone]; FAX [phone]
[2021-03-12 19:50] VITALS: BP 127/75
[2021-03-13 04:45] VITALS: BP 145/84
[2021-03-13 06:03] LABS: CALCIUM 9.6 mg/dL (8.5-10.1); MAGNESIUM 2.1 mg/dL (1.8-2.4); PHOSPHORUS 4.4 mg/dL (2.5-4.9)
--- NOTE | 2021-03-13 06:28 | NUR ---
ASSESSMENT: PT REMAIN ALERT AND ORIENT TIMES FOUR. DENIES VISUAL/AUDIBLE HALLUCINATIONS. C/O RIGHT ANKLE PAIN AND STATES THAT HE IS ANXIOUS MORE THAN OTHER TIMES. ATIVAN AND OXYCODONE GIVEN WITH GOOD RESULTS. PT SLEPT FOR 5 HRS. UP AD SHIV TO BR. VSS, AFEBRILE. SR-ST PER MONITOR. ANXIOUS, RESTLESS WITH TREMORS AT THE BEGINNING OF THE SHIFT WHICH SLOWLY LESSENED THE SHIFT PROGRESS. SLOW PROGRESS TOWARDS DC GOALS., WILL CONTINUE TO MONITOR.
[2021-03-13 07:55] VITALS: BP 116/75
[2021-03-13] MEDS ORDERED: CEFAZOLIN1 GM/50 M1 IV (11:45)
[2021-03-13 11:49] VITALS: BP 116/75
--- NOTE | 2021-03-13 11:57 | NUR ---
Pt dcing home today with continued iv atb and wound care. [facility] liason here to visit with pt and pickup orders. [facility] infusion liason notified as well. IV atb orders are the same and the pt has a picc line in place. Orders being faxed to both per the hh liason. No other cm interventions indicated. Pt's to pick him up this afternoon.
[2021-03-13 12:02] VITALS: BP 116/75
--- NOTE | 2021-03-13 14:58 | NUR ---
ASSESSMENT CHARTED. PT ALERT AND ORIENTED. VSS. PRN PAIN MED GIVEN WITH PARTIAL RELIEF. SR ON TELE. SEEN BY DR. GOLD AND DR. CASE. ORDERS GIVEN TO DISCHARGE PT TO HOME WITH HOME HEALTH. DISCHARGE INSTRUCTIONS GIVEN TO PT. PT VERBERLISED UNDERSTANDING.
== END 2021-03-13 15:04 | disposition home health service (06) | DRG 549 ==
LOC: ER 15:44 → EROBS 20:05 → 2N 20:05
PROVIDERS: Nurse Practitioner Family; Physician Assistant; ADMIT Hospitalist; ATTEND Hospitalist
DX: M00.071 Staphylococcal arthritis, right ankle and foot (principal); E87.1 Hypo-osmolality and hyponatremia; T81.49XA Infection following a procedure, other surgical site, initial encounter; R65.10 Systemic inflammatory response syndrome (SIRS) of non-infectious origin without acute organ dysfunction; F10.229 Alcohol dependence with intoxication, unspecified; B95.61 Methicillin susceptible Staphylococcus aureus infection as the cause of diseases classified elsewhere; F41.9 Anxiety disorder, unspecified; F32.9 Major depressive disorder, single episode, unspecified; I10 Essential (primary) hypertension; M76.60 Achilles tendinitis, unspecified leg; G89.29 Other chronic pain; K76.0 Fatty (change of) liver, not elsewhere classified; Y90.9 Presence of alcohol in blood, level not specified; K21.9 Gastro-esophageal reflux disease without esophagitis; Z79.82 Long term (current) use of aspirin; Z79.899 Other long term (current) drug therapy; Z90.49 Acquired absence of other specified parts of digestive tract; Z88.5 Allergy status to narcotic agent; Z88.8 Allergy status to other drugs, medicaments and biological substances; Y83.8 Other surgical procedures as the cause of abnormal reaction of the patient, or of later complication, without mention of misadventure at the time of the procedure; Y92.89 Other specified places as the place of occurrence of the external cause
CPT/HCPCS: 10081

== ENCOUNTER 2021-03-24 02:26 | Emergency (ER) | payer OTHER ==
[~2021-03-24] VITALS: Ht 190.5 cm; Wt 106.6 kg
[~2021-03-24 02:26] MED LIST changes: +CEFAZOLIN1 GM/50 M1 IV
[2021-03-24 03:12] LABS: ABSOLUTE NEUTROPHILS 2.5 thou/uL (1.4-8.2); BASOPHILS 2.1 % (0.0-2.0); EOSINOPHILS 2.4 % (0.0-3.0); HEMATOCRIT 32.2 % (42.0-52.0); HEMOGLOBIN 11.3 gm/dL (14.0-18.0); LYMPHOCYTES 36.7 % (24.0-44.0); MCH 32.5 pg (26.0-34.0); MCHC 35.1 g/dL (28.0-37.0); MCV 92.8 fL (80.0-100.0); MONOCYTES 7.8 % (1.0-8.0); PLATELET COUNT 316 thou/uL (150-400); RBC 3.47 mil/uL (4.50-6.00); RDW 17.2 % (10.5-14.5); WBC 4.9 thou/uL (4.0-11.0)
[2021-03-24 03:20] LABS: ANION GAP 10 mmol/L (7-16); BUN 12 mg/dL (7-18); CALCIUM 8.6 mg/dL (8.5-10.1); CHLORIDE 103 mmol/L (98-107); CO2 27 mmol/L (21-32); CREATININE 1.1 mg/dL (0.7-1.3); GLUCOSE 105 mg/dL (74-106); POTASSIUM 3.9 mmol/L (3.5-5.1); SODIUM 140 mmol/L (136-145)
[2021-03-24 03:26] LABS: ALBUMIN 4.1 g/dL (3.4-5.0); MAGNESIUM 2.3 mg/dL (1.8-2.4); SALICYLATE < 2.8 mg/dL (2.8-20.0); SGOT 18 U/L (15-37); SGPT 11 U/L (16-63); TOTAL BILIRUBIN 0.2 mg/dL (0.2-1.0); TOTAL PROTEIN 7.5 g/dL (6.4-8.2)
[2021-03-24 08:43] VITALS: BP 108/66
== END 2021-03-24 09:01 | disposition home or self-care (01) ==
LOC: ER 02:26
PROVIDERS: Emergency Medicine
DX: F10.920 Alcohol use, unspecified with intoxication, uncomplicated (principal); F19.10 Other psychoactive substance abuse, uncomplicated; M25.571 Pain in right ankle and joints of right foot; F32.9 Major depressive disorder, single episode, unspecified; F41.9 Anxiety disorder, unspecified; I10 Essential (primary) hypertension; K21.9 Gastro-esophageal reflux disease without esophagitis; Z90.49 Acquired absence of other specified parts of digestive tract; Z79.899 Other long term (current) drug therapy; Z79.82 Long term (current) use of aspirin; Z88.5 Allergy status to narcotic agent; Z88.8 Allergy status to other drugs, medicaments and biological substances; Z88.6 Allergy status to analgesic agent